=== PATIENT | male | born 1975 | race Caucasian/White ===

== ENCOUNTER 2018-05-17 12:12 | Emergency (ER) | payer OTHER ==
[~2018-05-17] VITALS: Ht 167.6 cm; Wt 72.6 kg
[2018-05-17] MEDS ORDERED: KEFLEX500 M1 PO (14:03)
[2018-05-17 14:45] VITALS: BP 133/83
== END 2018-05-17 14:35 | disposition home or self-care (01) ==
LOC: ER 12:12
DX: S01.81XA Laceration without foreign body of other part of head, initial encounter (principal); F17.210 Nicotine dependence, cigarettes, uncomplicated; Z23 Encounter for immunization; W20.8XXA Other cause of strike by thrown, projected or falling object, initial encounter; Y92.89 Other specified places as the place of occurrence of the external cause; Y93.89 Activity, other specified; Y99.8 Other external cause status